=== PATIENT | female | born 1965 | race Hispanic/Latino ===

== ENCOUNTER 2023-08-25 08:35 | Day surgery (SDC) | payer OTHER ==
[2023-08-20 13:00] VITALS: BP 140/69; PULSE 88; RESP 17
[2023-08-20 13:08] LABS: BASOPHILS # (AUTO) 0.03 K/uL (0.00-0.20); BASOPHILS % (AUTO) 0.4 % (0.0-5.0); EOSINOPHILS # (AUTO) 0.05 K/uL (0.00-0.70); EOSINOPHILS % (AUTO) 0.7 % (0.0-8.0); HEMATOCRIT 39.1 % (36-48); IMMATURE GRANULOCYTE ABSOLUTE 0.03 K/uL (0-1); LYMPHOCYTES # (AUTO) 1.7 K/uL (1.0-4.8); LYMPHOCYTES % (AUTO) 24.9 % (21.0-51.0); MEAN CORPUSCULAR HEMOGLOBIN 27.8 pg (27.0-33.0); MEAN CORPUSCULAR HGB CONC 31.7 g/dL (32.0-36.0); MEAN CORPUSCULAR VOLUME 87.7 fL (79-99); MONOCYTES # (AUTO) 0.4 K/uL (0.1-1.0); MONOCYTES % (AUTO) 6.4 % (3.0-13.0); NEUTROPHILS # (AUTO) 4.5 K/uL (1.8-7.7); NEUTROPHILS % (AUTO) 67.2 % (40.0-77.0); PLATELET COUNT (AUTO) 257 K/uL (130-400); RED BLOOD CELL COUNT(AUTO) 4.46 MIL/uL (4.00-5.50); RED CELL DISTRIBUTION WIDTH 14.6 % (11.0-15.5); WHITE BLOOD COUNT (AUTO) 6.7 K/uL (4.8-10.8)
[2023-08-20 13:13] LABS: CREATININE 0.6 mg/dL (0.5-1.5); POTASSIUM 3.7 mmol/L (3.5-5.1)
[2023-08-20 13:16] LABS: INR < 0.93 (0.85-1.15); PROTHROMBIN TIME 9.8 SEC (9.6-11.6)
[2023-08-20 13:18] LABS: PARTIAL THROMBOPLASTIN TIME 25.2 SEC (26.3-35.5)
[~2023-08-25] VITALS: Ht 144.8 cm; Wt 47.9 kg
[2023-08-25] VITALS (20 sets, daily range): BP systolic 102–130; BP diastolic 53–73; PULSE 67–90; RESP 14–20
[~2023-08-25 08:35] MED LIST: ATOR10 PO; EMPA1TAB PO; ERGO500093 PO
[2023-08-25] MEDS ORDERED: 0.9%NACL 1000ML 1,000 ML IV ONE (08:58)
[2023-08-25] MEDS ORDERED: ACETAMINOPHEN 1,000 MG/100 ML VIAL IV ONE (09:10)
[2023-08-25] MEDS ORDERED: PROPOFOL 10 MG/ML 20ML VIAL IV ONE (09:14)
[2023-08-25] MEDS ORDERED: BUPIVACAINE/PF 0.5% 30ML VIAL ONE (09:14)
[2023-08-25] MEDS ORDERED: MIDAZOLAM HCL 1 MG/ML 2ML VIAL ONE (09:14)
[2023-08-25] MEDS ORDERED: EPINEPHRINE PF 1MG (1:1,000) 1 MG/ML AMP ONE (09:14)
[2023-08-25] MEDS ORDERED: FENTANYL CITRATE PF 50 MCG/1 ML 2ML VIAL ONE (09:15)
[2023-08-25] MEDS ORDERED: CEFAZOLIN SODIUM 2 GM VIAL ONE (09:23)
[2023-08-25] MEDS ORDERED: SUCCINYLCHOLINE CHLORIDE 20 MG/ML 10 ML VIAL ONE (11:07)
[2023-08-25] MEDS ORDERED: ROCURONIUM BROMIDE 10MG/1ML 5ML VL ONE (11:07)
[2023-08-25] MEDS ORDERED: PHENYLEPHRINE HCL 10 MG/ML 1ML VIAL IV ONE (11:11)
[2023-08-25] MEDS ORDERED: BUPIVACAINE/PF 0.5% 30ML VIAL INJ ONE (11:21)
[2023-08-25] MEDS ORDERED: CEFAZOLIN SODIUM 2 GM VIAL IVPB ONE (11:42)
[2023-08-25] MEDS ORDERED: DOCU-116 PO (12:00)
[2023-08-25] MEDS ORDERED: TRAM50TA4 PO (12:00)
[2023-08-25] MEDS ORDERED: NEOSTIGMINE METHYLSULFATE 1MG/ML IV ONE (12:00)
[2023-08-25] MEDS ORDERED: GLYCOPYRROLATE 0.2 MG/ML 5 ML VIAL ONE (12:00)
[2023-08-25] MEDS ORDERED: ONDANSETRON 4MG INJ ONE (12:14)
== END 2023-08-25 14:20 | disposition home or self-care (01) ==
LOC: DAH 08:35
PROVIDERS: ATTEND Surgery
DX: C20 Malignant neoplasm of rectum (principal); K62.5 Hemorrhage of anus and rectum; K59.01 Slow transit constipation; R63.4 Abnormal weight loss; I10 Essential (primary) hypertension; E11.9 Type 2 diabetes mellitus without complications; Z79.01 Long term (current) use of anticoagulants; Z79.899 Other long term (current) drug therapy; Z83.3 Family history of diabetes mellitus; Z82.49 Family history of ischemic heart disease and other diseases of the circulatory system; Z90.49 Acquired absence of other specified parts of digestive tract; Z98.891 History of uterine scar from previous surgery; Z84.1 Family history of disorders of kidney and ureter; Z87.891 Personal history of nicotine dependence; Z68.22 Body mass index [BMI] 22.0-22.9, adult
CPT/HCPCS: 80048; 84703 ×2; 85025; 85610; 85730; 36415 ×2; 36561; 71045; 82948 ×2; 77001; A6260; A4600; J7030 ×2; A4606; C1788; J3010; J0330; J3490 ×2; J0171; J2250; J2704; J2405; J2710; J0665 ×2; J1644; J2371; J0690 ×2; G0168; A4215; A4223; A4213; A4222; A4221; A4663; A4335; 76000